=== PATIENT | female | born 1970 | race Caucasian/White ===

== ENCOUNTER 2016-11-21 01:28 | Emergency (ER) | payer OTHER ==
[~2016-11-21] VITALS: Ht 165.1 cm; Wt 101.2 kg
[~2016-11-21 01:28] MED LIST: ANUSOL-HC21 GM PR; CIPRO500 MG PO; FLAGYL500 MG PO; INDOCIN25 MG PO; MOTRIN400 MG PO; MOTRIN800 MG PO; NAPROSYN500 MG PO; NORCO 5/3251 TABLET PO; NORCO 7.5/321 TABLET PO; PRILOSEC20 MG PO; PROAIR HFA8.5 GM IH; ROBAXIN500 MG PO; TESSALON PERLE100 MG PO; ULTRAM50 MG PO; VIBRAMYCIN100 MG PO; VICODIN 5-3001 EACH PO; ZITHROMAX250 MG PO; ZOFRAN4 MG PO
[2016-11-21 02:17] LABS: HEMATOCRIT 42.4 % (36.0-46.0); MCH 31.4 PG (29.0-34.0); MCHC 33.3 G/DL (30.0-36.0); MCV 94.4 FL (83-99); MEAN PLAT.VOLUME 10.8 uM^3 (9.5-12.4); PLATELET COUNT 248 K/uL (156-360); RBC DIS.WIDTH-SD 42.1 % (39-53); RED BLOOD COUNT 4.49 M/uL (3.80-5.20); WHITE BLOOD COUNT 10.9 K/uL (4.1-10.2)
[2016-11-21 02:29] LABS: CHLORIDE 102 mEq/L (99-109); POTASSIUM 3.9 mEq/L (3.7-5.4); SODIUM 139 mEq/L (136-147)
[2016-11-21 02:31] LABS: GLUCOSE 138 mg/dL (70-99)
[2016-11-21 02:32] LABS: ANION GAP 10 MEQ/L (2-14)
[2016-11-21 02:33] LABS: TOTAL BILIRUBIN 0.5 mg/dL (0.0-1.0)
[2016-11-21 02:35] LABS: ALKALINE PHOSPHATASE 68 IU/L (3-129); GFR ESTIMATE (CALCULATED) > 59 mL/min/
[2016-11-21 02:36] LABS: UREA NITROGEN (BUN) 7 mg/dL (9-23)
[2016-11-21 02:43] LABS: QUANTITATIVE HCG < 4.0 MIU/ML
[2016-11-21 03:03] LABS: ADD MIUA? YES; BILIRUBIN NEGATIVE; BLOOD NEGATIVE; COLOR YELLOW ((YELLOW)); GLUCOSE (STRIP) NEGATIVE; KETONES NEGATIVE; LEUKOCYTES LARGE; NITRITE NEGATIVE; PROTEIN (STRIP) 30; SPECIFIC GRAVITY 1.017 (1.000-1.030); UROBILINOGEN 0.2 MG/DL (0.2-1.0)
[2016-11-21 03:22] LABS: BACTERIA 2+ /HPF; CASTS NONE SEEN /LPF; CRYSTALS NONE SEEN; EPITHELIAL CELLS 1+ /HPF; MUCUS 3+ /LPF; RED BLOOD CELLS NONE SEEN /HPF (0-5); UCUL ADDED? YES; WHITE BLOOD CELLS TNTC /HPF (0-5)
[2016-11-21] MEDS ORDERED: CIPRO500 MG PO (03:50)
[2016-11-21] MEDS ORDERED: NORCO 5/3251 TABLET PO (03:50)
[2016-11-21] MEDS ORDERED: FLAGYL500 MG PO (03:50)
[2016-11-21 04:56] VITALS: BP 138/88
== END 2016-11-21 04:57 | disposition home or self-care (01) ==
LOC: EME 01:28
DX: K57.92 Diverticulitis of intestine, part unspecified, without perforation or abscess without bleeding (principal); N39.0 Urinary tract infection, site not specified; J45.909 Unspecified asthma, uncomplicated; Z87.891 Personal history of nicotine dependence
CPT/HCPCS: 71010; 74177; 80053; 81003; 84702; 85027; 87086; 99281; 99284; J0744; J2405; J3010; J7030

== ENCOUNTER 2017-01-27 01:28 | Observation (INO) | payer OTHER ==
[~2017-01-27] VITALS: Ht 165.1 cm; Wt 98.1 kg
[2017-01-27 02:08] LABS: BASOPHIL COUNT 0.1 K/uL (0-0.1); EOSINOPHIL COUNT 0.5 K/uL (0-0.3); HEMATOCRIT 42.6 % (36.0-46.0); IMMATURE GRANULOCYTE (%) 0.1 % (0.0-0.7); INSTRUMENT ABS NEUTROPHIL CT 3.3 K/uL; LYMPHOCYTE COUNT 3.9 K/uL (1.0-2.8); MCHC 33.6 G/DL (30.0-36.0); MCV 92.4 FL (83-99); MEAN PLAT.VOLUME 10.2 uM^3 (9.5-12.4); MONOCYTE (%) 5.2 % (3-12); MONOCYTE COUNT 0.4 K/uL (0-0.8); NEUTROPHIL (%) 40.5 % (45-76); NEUTROPHIL COUNT 3.3 K/uL (1.8-6.4); PLATELET COUNT 255 K/uL (156-360); RBC DIS.WIDTH-CV 12.2 % (11.8-14.6); RBC DIS.WIDTH-SD 41.7 % (39-53); RED BLOOD COUNT 4.61 M/uL (3.80-5.20); WHITE BLOOD COUNT 8.2 K/uL (4.1-10.2)
[2017-01-27 02:18] LABS: CHLORIDE 106 mEq/L (99-109); POTASSIUM 3.8 mEq/L (3.7-5.4); SODIUM 141 mEq/L (136-147)
[2017-01-27 02:20] LABS: GLUCOSE 112 mg/dL (70-99)
[2017-01-27 02:22] LABS: ANION GAP 12 MEQ/L (2-14)
[2017-01-27 02:24] LABS: GFR ESTIMATE (CALCULATED) > 59 mL/min/
[2017-01-27 02:25] LABS: UREA NITROGEN (BUN) 12 mg/dL (9-23)
[2017-01-27 02:28] LABS: TROP-I INTERPRETATION NEGATIVE; TROPONIN-I < 0.01 ng/mL (0.0-0.30)
[2017-01-27 04:14] LABS: ADD MIUA? YES; BILIRUBIN NEGATIVE; BLOOD SMALL; COLOR YELLOW ((YELLOW)); GLUCOSE (STRIP) NEGATIVE; KETONES NEGATIVE; LEUKOCYTES LARGE; NITRITE NEGATIVE; PROTEIN (STRIP) NEGATIVE; SPECIFIC GRAVITY 1.017 (1.000-1.030); UROBILINOGEN 0.2 MG/DL (0.2-1.0)
[2017-01-27 04:17] LABS: BACTERIA RARE /HPF; EPITHELIAL CELLS 1+ /HPF; MUCUS TRACE /LPF; RED BLOOD CELLS 20-30 /HPF (0-5); UCUL ADDED? YES; WHITE BLOOD CELLS TNTC /HPF (0-5)
[2017-01-27 05:11] LABS: TROP-I INTERPRETATION NEGATIVE; TROPONIN-I < 0.01 ng/mL (0.0-0.30)
[2017-01-27 05:41] LABS: MAGNESIUM 2.1 mg/dL (1.3-2.7)
[2017-01-27] MEDS ORDERED: GABAPENTIN300 MG PO (05:48)
[2017-01-27] MEDS ORDERED: VENTOLIN HFA18 GM IH (05:51)
[2017-01-27 06:34] LABS: HDL CHOLESTEROL 38 MG/DL (Desirable>=50); LDL CHOLESTEROL 101 mg/dL (Desirable<100); NON-HDL CHOLESTEROL 130 mg/dL (Desirable<160); TOTAL CHOLESTEROL 168 mg/dL (Desirable<200); TRIGLYCERIDES 147 MG/DL (Normal: <150)
[2017-01-27 07:23] LABS: ALKALINE PHOSPHATASE 57 IU/L (3-129); DIRECT BILIRUBIN 0.1 mg/dL (0.0-0.3); TOTAL BILIRUBIN 0.3 MG/DL (0.0-1.0)
[2017-01-27 08:04] VITALS: BP 123/79
[2017-01-27 12:36] VITALS: BP 125/70
[2017-01-27 14:11] LABS: TROP-I INTERPRETATION NEGATIVE; TROPONIN-I < 0.01 ng/mL (0.0-0.30)
[2017-01-27] MEDS ORDERED: PANTOPRAZOLE SO40 MG PO (14:24)
[2017-01-27 15:39] VITALS: BP 117/69
== END 2017-01-27 15:44 | disposition home or self-care (01) ==
LOC: EME 01:28 → EDOF 05:25 → ENRESERV 05:27 → 5WEST 07:32
PROVIDERS: Emergency Medicine; Physician Assistant Medical
DX: R07.89 Other chest pain (principal); R00.2 Palpitations; Z82.49 Family history of ischemic heart disease and other diseases of the circulatory system; N39.0 Urinary tract infection, site not specified; J45.909 Unspecified asthma, uncomplicated; R55 Syncope and collapse; M75.31 Calcific tendinitis of right shoulder; Z87.19 Personal history of other diseases of the digestive system; E66.9 Obesity, unspecified; Z90.710 Acquired absence of both cervix and uterus; Z87.891 Personal history of nicotine dependence; Z79.82 Long term (current) use of aspirin
CPT/HCPCS: 71020; 80048; 80061; 80076; 81003; 83735; 84484; 85025; 87086; 93005; 99202; 99281; 99285; G0378; J1644

== ENCOUNTER 2017-04-10 04:06 | Emergency (ER) | payer OTHER ==
[~2017-04-10] VITALS: Ht 162.6 cm; Wt 99.0 kg
[~2017-04-10 04:06] MED LIST changes: +GABAPENTIN300 MG PO; +PANTOPRAZOLE SO40 MG PO; +VENTOLIN HFA18 GM IH
[2017-04-10 05:13] LABS: CHLORIDE 106 mEq/L (99-109); POTASSIUM 4.6 mEq/L (3.7-5.4); SODIUM 139 mEq/L (136-147)
[2017-04-10 05:15] LABS: GLUCOSE 128 mg/dL (70-99)
[2017-04-10 05:17] LABS: ANION GAP 13 MEQ/L (2-14); TOTAL BILIRUBIN 0.5 mg/dL (0.0-1.0)
[2017-04-10 05:19] LABS: ALKALINE PHOSPHATASE 61 IU/L (3-129); GFR ESTIMATE (CALCULATED) > 59 mL/min/
[2017-04-10 05:20] LABS: UREA NITROGEN (BUN) 18 mg/dL (9-23)
[2017-04-10 05:52] LABS: HEMATOCRIT 43.4 % (36.0-46.0); MCH 31.5 PG (29.0-34.0); MCHC 33.4 G/DL (30.0-36.0); MCV 94.1 FL (83-99); MEAN PLAT.VOLUME 10.1 uM^3 (9.5-12.4); PLATELET COUNT 260 K/uL (156-360); RBC DIS.WIDTH-SD 41.9 % (39-53); RED BLOOD COUNT 4.61 M/uL (3.80-5.20); WHITE BLOOD COUNT 8.3 K/uL (4.1-10.2)
[2017-04-10] MEDS ORDERED: MECLIZINE HCL25 MG PO (06:26)
[2017-04-10 06:49] VITALS: BP 128/100
== END 2017-04-10 07:14 | disposition home or self-care (01) ==
LOC: EME 04:06
PROVIDERS: Emergency Medicine
DX: R42 Dizziness and giddiness (principal); R11.0 Nausea; Z91.81 History of falling; J45.909 Unspecified asthma, uncomplicated; Z87.891 Personal history of nicotine dependence
CPT/HCPCS: 70450; 80053; 85027; 93005; 99281; 99284; J1100; J2765